=== PATIENT | female | born 1990 | race Caucasian/White ===

== ENCOUNTER 2021-08-08 19:09 | Emergency (ER) | payer OTHER ==
[~2021-08-08] VITALS: Ht 175.3 cm; Wt 86.4 kg
[2021-08-08 19:15] VITALS: TEMP 97.9
[2021-08-08 20:12] LABS: BASO % 0.4 % (0.0-2.0); EOS # 0.2 K/mm3 (0.0-0.7); EOS % 2.1 % (0.0-4.0); GRAN # 4.6 K/mm3 (1.4-6.5); GRAN % 62.5 % (42.2-75.2); HEMATOCRIT 38.5 % (37.0-47.0); HEMOGLOBIN 13.3 g/dl (12.5-16.0); LYMPH # 1.9 K/mm3 (1.2-3.4); LYMPH % 26.6 % (20.0-51.0); MEAN CELL VOLUME 91 fl (80.0-100.0); MEAN CORPUSCULAR HEMOGLOBIN 31 pg (27-31); MEAN CORPUSCULAR HGB CONC 35 g/dl (33.0-37.0); MEAN PLATELET VOLUME 11.1 fl (7.4-10.4); MONO # 0.6 K/mm3 (0.1-0.6); MONO % 8.1 % (1.7-9.3); PLATELET COUNT 202 K/mm3 (130-400); RED BLOOD COUNT 4.23 M/mm3 (4.10-5.30); REDCELL DISTRIBUTION WIDTH-CV 12.6 % (11.5-14.5)
[2021-08-08 20:34] LABS: ALANINE AMINOTRANSFERASE 11 U/L (0-55); ALBUMIN 4.1 gm/dL (3.5-5.0); ALKALINE PHOSPHATASE 57 U/L (40-150); ANION GAP 10 mmol/L (7-16); AST,SGOT 20 U/L (5-34); BILIRUBIN,TOTAL 0.3 mg/dL (0.2-1.2); BLOOD UREA NITROGEN 16 mg/dL (7-19); CARBON DIOXIDE 25 mmol/L (22-29); CHLORIDE 104 mmol/L (98-107); CREATININE, serum 0.81 mg/dL (0.57-1.11); GLUCOSE 87 mg/dL (70-99); POTASSIUM 3.8 mmol/L (3.5-4.5); SODIUM 139 mmol/L (136-145); TOTAL PROTEIN 7.5 gm/dL (6.2-8.1)
[2021-08-08 20:53] LABS: TSH w REFLEX 1.197 uIU/mL (0.350-4.940)
[2021-08-08 20:55] LABS: TROPONIN-I < 0.010 ng/mL (0.00-0.033)
[2021-08-08 21:29] VITALS: BP 111/83; PULSE 84
== END 2021-08-08 21:30 | disposition home or self-care (01) ==
LOC: COL.ER 19:09
PROVIDERS: Physician Assistant
DX: R00.2 Palpitations (principal)